=== PATIENT | female | born 1990 | race Caucasian/White ===

== ENCOUNTER 2017-02-14 22:15 | Observation (INO) | payer OTHER ==
--- NOTE | ~2017-02-14 | DS ---
Unit #: [id number] #: [id number] Patient: NELLI [id number] [address] [address] [id number] I MR#: [id number] NAME: NELLI DECEMBER ROOM: 339 Age: 27 Sex: F Admission Date: 02/14/2017 : 1990 Discharge Date: 02/15/2017 Attending Physician: Jessica Fields M.D. DISCHARGE SUMMARY SHORT-STAY SUMMARY CHIEF COMPLAINT Benadryl overdose. HISTORY OF PRESENT ILLNESS Ms. Card is a 27-year-old female with a history of recurrent severe depression with associated prior suicide attempt, who presented to the emergency room for the above. The patient states she has been experiencing increasing stress at home recently. She is upset that her children's father is unable to see them due to the fact that he is using significant amount of drugs. She is having trouble with bills. She is trying to find a new place to stay. She states simply the stress became too much and she decided to take some Benadryl. The patient states she took 27 Benadryl and per review of emergency room records the boyfriend confirms this amount is pretty appropriate. She was subsequently brought to the emergency room by her boyfriend. Physical examination and vital signs at that time were relatively stable, though the patient was somewhat agitated. She has been placed in the hospital for further evaluation. The patient does not directly answer whether she was trying to hurt herself or not. She has been placed on a 72-hour hold. PAST MEDICAL HISTORY 1. Chronic recurrent major depressive disorder. [facility] from [facility], when the patient was age 14, revealed that she had at least 2 suicide attempts before that time and was abusing marijuana and alcohol as a teenager. 2. Questionable history of lupus. PAST SURGICAL HISTORY Tubal ligation. SOCIAL HISTORY The patient does reside with her children. She is vague on how much she smokes and states "It depends on how stressed I am." She does have a history of illicit drug use in the past. FAMILY HISTORY Significant for ovarian cancer in the patient's mother per review of records. The patient's father has skin cancer. ALLERGIES No known drug allergies. HOME MEDICATIONS Unit #: [id number] #: [id number] Patient: Some medication for anxiety. REVIEW OF SYSTEMS The patient denies any nausea, vomiting, constipation, diarrhea at this time. She denies any shortness of breath or chest pain. She denies any tingling or numbness. Otherwise 10-point review of systems is negative. PHYSICAL EXAMINATION GENERAL: The patient is awake. She is alert. She is oriented times three. She makes fair eye contact. VITALS: Temperature 98.3, blood pressure 125/89, pulse rate 71, respiratory rate 16, oxygen saturation 98% on room air. HEENT: Pupils equally round and reactive to light bilaterally. Anicteric sclerae. No conjunctival pallor. Oropharynx with moist mucous membranes. No erythema or exudate. NECK: Supple. No lymphadenopathy. No thyromegaly. No jugular venous distension. LUNGS: Clear to auscultation bilaterally without wheezes, rhonchi or crackles. HEART: Regular rate and rhythm without murmur, rub or gallop. ABDOMEN: Soft, nontender and nondistended. Positive bowel sounds. No appreciable hepatosplenomegaly. EXTREMITIES: No cyanosis, clubbing or edema. Pedal pulses 2/4. SKIN: Warm and moist without rash. NEUROLOGIC: Cranial nerves II through XII are intact. Sensation, strength and deep tendon reflexes are all grossly normal. Gait was not assessed. MUSCULOSKELETAL: No significant joint erythema or hypertrophy noted. PSYCHIATRIC: Eye contact again fair. Affect is somewhat flat. DIAGNOSTIC STUDIES LABORATORY: Urinalysis reveals 3+ blood, 100-200 RBCs, but the patient is currently on her period. Urine drug screen is positive for amphetamines, marijuana, opiates and TCAs. CBC reveals a white blood cell count of 10.7, hemoglobin 15.1, platelet count of 286,000, INR normal at 1.1. CMP reveals a sodium of 139, potassium 3.1, chloride 104, bicarb 25, BUN 10, creatinine 0.9, glucose 94. LFTs and albumin are all normal. Tylenol, salicylate and alcohol levels are all negative. CARDIOVASCULAR: EKG done in the emergency department reveals normal sinus rhythm without any acute ST or T wave abnormalities. ASSESSMENT 1. Intentional Benadryl overdose. 2. Polysubstance abuse, including amphetamines, marijuana, opiates and TCAs. 3. Hypokalemia. 4. Tobaccoism. 5. Questionable history of lupus. PLAN The patient is medically stable this morning from her Benadryl overdose. I am awaiting evaluation by psychiatry and I anticipate the patient will be [facility]. I will check an HIV and viral hepatitis panel on blood in the lab for completeness. Unit #: [id number] #: [id number] Patient: Dictated by... Jessica Fields M.D. GERRY/ruth TD: 02/15/2017 07:21 JOB #: [id number] DISCHARGE SUMMARY Page 1 of 1 X Jessica Fields MD X DISCHARGE SUMMARY
--- NOTE | ~2017-02-14 | EKG ---
PATIENT: NELLI DECEMBER UNIT #: [id number] Ventricular Rate: 103 BPM Atrial Rate: 103 BPM P-R Interval: 124 ms QRS Duration: 76 ms Q-T Interval: 342 ms QTC Calculation(Bezet): 448 ms P Finley: 59 degrees Calculated R Finley: 74 degrees Calculated T Finley: 54 degrees Diagnosis Line: Sinus tachycardia Diagnosis Line: Possible Left atrial enlargement Diagnosis Line: Borderline ECG Diagnosis Line: No previous ECGs available Diagnosis Line: Confirmed by STANISLAV WASHBURN MD ([id number]) on Diagnosis Line: 02/16/2017 3:40:41 PM INTERPRETING MD: WU BENITO
--- NOTE | ~2017-02-14 | CO ---
Unit #: [id number] #: [id number] Patient: ANDREA AIKEN [id number] [facility] [address] [facility]. [place], [place] [address] [id number] I MR#: [id number] NAME: ANDREA AIKEN ROOM: 339 Age: 27 Sex: F Admission Date: 02/15/2017 : 1990 Attending Physician: Jessica Fields M.D. Consultation Date: 02/15/2017 CONSULTATION REPORT REASON FOR CONSULTATION Overdose and depression. HISTORY OF PRESENT ILLNESS Ms. Abel is a 27-year-old white female, seen in room 339, bed 1 on 02/15/2017 at [facility]. The patient dressed in street clothes, somewhat agitated. Security was called. The patient was very mad, angry, paranoid, and agitated. The patient wanted to leave. The patient is on 72-hour hold, came with overdose. The patient's behavior was belligerent, agitated, angry, and upset. The patient was brought to the emergency room by boyfriend on 02/14/2017, took overdose of Benadryl. The patient was tested about custody north with her children. The patient has no employment or medical issues. Increasingly sad and depressed over the last few weeks. Anxiety according to the family member. The patient claimed overdose and suicide attempt on admission. The patient was placed on 72-hour hold. The patient also reported history of substance abuse, lately increased tobacco use, age of onset 11; alcohol, age of onset 14; marijuana, age of onset 13; crack cocaine, age of onset 14; opioid, age of onset 23; amphetamine, age of onset 27. The patient reported history of blackout, but no history of any IV drug use. The patient's vital signs; temperature 98.1, pulse 72, respirations 16, blood pressure 105/67, and oxygen saturation 100%. PAST PSYCHIATRIC HISTORY Remarkable for history of substance abuse, depression, and anxiety. MEDICAL HISTORY Remarkable for lupus. MEDICATION HISTORY None. FAMILY HISTORY AND SOCIAL HISTORY The patient has a good support system. No history of abuse. History of substance abuse as mentioned above. REVIEW OF SYSTEMS A complete review of systems is unremarkable. MENTAL STATUS EXAMINATION Vital signs; please see above. General appearance; the patient dressed in street clothes, agitated, mad, yelling, and screaming. Mood was labile. Attention span and concentration, poor. Speech; rapid and pressured. Oriented in time, place, and person. Mood and affect, labile. Thought Unit #: [id number] #: [id number] Patient: NELLI process, circumstantial. Thought content; denied any thoughts of harming self or others, but guarded, paranoid, and recent suicide attempt by taking overdose. Denied any hallucination, but guarded and paranoid. Recent and remote memory, fair to poor. Language, fair. Fund of knowledge, fair. Insight and judgment, fair to slightly impaired. DIAGNOSES Psychiatric: Major depressive disorder, recurrent, severe, F33.2; polysubstance abuse, urine drug screen positive for amphetamine, marijuana, opioid; opioid use disorder, severe, F11.20; cannabis abuse, ywfhoamh-ui-couzju, F12.20; amphetamine use disorder, dfybtsdh-mi-dfttjk, F15.20. Secondary diagnosis: Deferred. Medical diagnosis: Lupus. Stressors: Psychosocial stressor. DISCHARGE INSTRUCTIONS Supportive psychotherapy and psychoeducation provided to the patient. The patient was very agitated, angry, and upset. Advised the patient to be transferred to [facility] for inpatient psychiatric treatment. If needed, please feel free to call, telephone #[phone]. Dictated by... Anibal Romero/niels TD: 02/16/2017 14:13 JOB #: [id number] CONSULTATION REPORT Page 1 of 1 X Nayan Justice MD X CONSULTATION REPORT
--- NOTE | ~2017-02-14 | CT71 ---
[facility] A Service [facility] RADIOLOGY TEXT RESULTS PATIENT: NELLI LOCATION: [facility] 339-01 : [birth year] UNIT #: [id number] AGE: [address]: Jessica Fields MD SEX: F ORDER DR: [id number] [place] [id number] I MR#: [id number] Acc #: [id number] NAME: NELLI DECEMBER : 1990 SEX: F STUDY DATE/TIME: 02/14/2017 23:06 UNIT: SEDOF ROOM: [facility] STUDY DESCRIPTION: CT Head Wo Contrast Attending Physician: Estefania Echeverria M.D. Ordering Physician: Rylan Dave M.D. MEDICAL IMAGING REPORT This report is preliminary unless electronic signature is present. EXAM CT head, noncontrast, 02/14/2017. HISTORY 27-year-old female in the ED with mental status changes after drug overdose. TECHNIQUE CT examination of the head without IV contrast. This CT exam was performed with one or more of the following radiation dose reduction techniques: automatic exposure control, adjustment of mA and/or kV according to patient size, and iterative reconstruction. FINDINGS The examination is negative. No evidence of intracranial hemorrhage, mass, mass effect, cerebral edema, hydrocephalus or additional abnormality. Note is made of mild to moderate mucosal thickening throughout the visualized paranasal sinuses. IMPRESSION 1. Negative noncontrast head CT examination. 2. Mucosal thickening throughout the paranasal sinuses. Dictated by... Joel Gibson M.D. THIS IS AN ELECTRONICALLY VERIFIED REPORT Joel Gibson M.D. at 02/15/2017 9:55 PM RGW/tmw [facility] A Service [facility] RADIOLOGY TEXT RESULTS PATIENT: NELLI LOCATION: [facility] 339-01 : [birth year] UNIT #: [id number] AGE: [address]: Jessica Fields MD SEX: F ORDER DR: TD: 02/15/2017 09:55 JOB #: [id number] MEDICAL IMAGING REPORT Page 1 of 1
[~2017-02-14 22:15] MED LIST: PRENATAL1 TA1 PO
[2017-02-14 22:47] LABS: URINE SOURCE CLEAN CATCH
[2017-02-14 22:51] LABS: URINE APPEARANCE CLEAR; URINE BILIRUBIN NEG (NEG); URINE BLOOD 3+ (NEG); URINE COLOR YELLOW; URINE GLUCOSE NEG (NORM); URINE KETONE NEG (NEG); URINE LEUKOCYTE ESTERASE NEG (NEG); URINE NITRATE NEG (NEG); URINE PROTEIN NEG (NEG); URINE SPECIFIC GRAVITY <=1.005 (1.003-1.035); URINE UROBILINOGEN 0.2 MG/DL (NORM)
[2017-02-14 22:55] LABS: BASOPHIL% 0.4 % (0-2.5); EOSINOPHIL# 0.1 X10e3 (0-0.7); EOSINOPHIL% 1.1 % (0.0-7.0); HEMATOCRIT 44.5 % (35.0-45.0); HEMOGLOBIN 15.1 gm/dL (12.0-16.0); LYMPHOCYTE# 2.4 X10e3 (1.0-3.5); MEAN CELL VOLUME 86.2 FL (83-96); MEAN CORPUSCULAR HEMOGLOBIN 29.2 PG (28-34); MEAN CORPUSCULAR HGB CONC 33.9 g/dL (30-36); MONOCYTE# 0.8 X10e3 (0-1.0); MONOCYTE% 7.7 % (3.0-12.0); NEUTROPHIL# 7.4 X10e3 (1.5-7.1); NEUTROPHIL% 68.8 % (40-75); PLATELET COUNT 286 X10e3 (140-420); RED BLOOD COUNT 5.16 X10e (3.90-5.30); RED CELL DISTRIBUTION WIDTH 13.5 % (11.0-15.5); WHITE BLOOD COUNT 10.7 X10e3 (4.0-10.5)
[2017-02-14 22:58] LABS: MICRO INDICATED? YES
[2017-02-14 22:59] LABS: CULTURE INDICATED? NO; URINE BACTERIA NEG (NEG); URINE RBC 100-200 /[HPF] (0-2); URINE WBC 0-2 /[HPF] (0-5)
[2017-02-14 23:01] LABS: AMPHETAMINE POS (NEG); BARBITURATES NEG (NEG); BENZODIAZEPINES NEG (NEG); COCAINE NEG (NEG); MARIJUANA POS (NEG); OPIATES POS (NEG); TRICYCLIC ANTIDEPRESSANTS POS (NEG); U METHADONE NEG (NEG)
[2017-02-14 23:02] LABS: DIFF IND NO
[2017-02-14 23:06] LABS: INR 1.1; PROTHROMBIN TIME (PATIENT) 12.2 SECONDS (9.5-12.4)
[2017-02-14 23:13] LABS: PARTIAL THROMBOPLASTIN TIME 30.3 SECONDS (25.6-38.1)
[2017-02-14 23:14] LABS: ALBUMIN SERUM 4.9 g/dL (3.5-5.0); ALKALINE PHOSPHATASE 69 U/L (32-92); ALT (SGPT) 23 U/L (10-40); AST (SGOT) 27 U/L (10-42); BILIRUBIN, DIRECT 0.1 mg/dL (0.0-0.2); BILIRUBIN,INDIRECT 0.3 mg/dL (0.0-0.9); BILIRUBIN,TOTAL 0.4 mg/dL (0.2-2.0); BLOOD UREA NITROGEN 10 mg/dL (9-23); BUN/CREATININE RATIO 11.11; CALCIUM SERUM 9.5 mg/dL (8.4-10.2); CARBON DIOXIDE 25 mmol/L (22-31); CHLORIDE 104 mmol/L (100-111); CREATININE SERUM 0.9 mg/dL (0.6-1.4); GLOM FILT RATE Estimated 87.1 mL/min (>60); GLUCOSE FASTING 94 mg/dL (70-110); POTASSIUM 3.1 mmol/L (3.5-5.1); PROTEIN TOTAL SERUM 8.1 g/dL (6.0-8.3); SALICYLATE <4.0 mg/dL; SODIUM 139 mmol/L (135-145)
[2017-02-14 23:17] LABS: ACETAMINOPHEN <10 ug/mL; ALCOHOL BLOOD <5 mg/dL (0)
[2017-02-15 06:22] LABS: HEMATOCRIT 41.6 % (35.0-45.0); HEMOGLOBIN 13.9 gm/dL (12.0-16.0); MEAN CELL VOLUME 86.8 FL (83-96); MEAN CORPUSCULAR HGB CONC 33.4 g/dL (30-36); RED BLOOD COUNT 4.79 X10e (3.90-5.30); RED CELL DISTRIBUTION WIDTH 13.4 % (11.0-15.5); WHITE BLOOD COUNT 10.9 X10e3 (4.0-10.5)
[2017-02-15 07:24] LABS: BUN/CREATININE RATIO 11.25; CALCIUM SERUM 9.2 mg/dL (8.4-10.2); CREATININE SERUM 0.8 mg/dL (0.6-1.4); GLOM FILT RATE Estimated 100.4 mL/min (>60); POTASSIUM 3.9 mmol/L (3.5-5.1)
[2017-02-18 00:59] LABS: HA AB IGM (HEPPAN) Nonreactive (()); HB CORE AB IGM (HEPPAN) Nonreactive (Nonreactive); HB S AG (HEPPAN) Nonreactive (Nonreactive); HEP C AB (HEPPAN) Nonreactive (Nonreactive); HEP C AB SIGNAL TO CUTOFF 0.03 ratio (<1.00)
== END 2017-02-15 17:03 ==
LOC: SED 22:15 → SEDOF 23:39 → C3A PCU 23:39 → SED 23:39 → CEDOF 02-15 02:30 → C3A PCU 02-15 02:30
PROVIDERS: Emergency Medicine; Internal Medicine
DX: T45.0X2A Poisoning by antiallergic and antiemetic drugs, intentional self-harm, initial encounter (principal); F15.10 Other stimulant abuse, uncomplicated; F11.10 Opioid abuse, uncomplicated; F12.10 Cannabis abuse, uncomplicated; F19.10 Other psychoactive substance abuse, uncomplicated; F33.2 Major depressive disorder, recurrent severe without psychotic features; E87.6 Hypokalemia; F17.200 Nicotine dependence, unspecified, uncomplicated; Z80.41 Family history of malignant neoplasm of ovary; Z80.8 Family history of malignant neoplasm of other organs or systems
CPT/HCPCS: 36415; 70450; 80048; 80074; 80076; 80307; 81003; 85025; 85027; 85610; 85730; 87806; 93005; 96360; 99285; G0378; G0480

== ENCOUNTER 2017-02-15 11:00 | Inpatient (IN) | payer OTHER ==
--- NOTE | ~2017-02-15 | PN ---
Unit #: [id number] #: [id number] Patient: NELLIDECEMBER [id number] [facility] [address] [place] [address] [id number] I MR#: [id number] NAME: ANDREA AIKEN ROOM: P171 Age: 27 Sex: F Admission Date: 02/15/2017 : 1990 Attending Physician: Geovanny Almonte M.D. Admitting Physician: Geovanny Almonte M.D. Primary Care Physician: Anibal Daniel PROGRESS NOTES DATE OF SERVICE: 02/16/2017 SUBJECTIVE Ms. Aiken is a 27-year-old white female, who was seen today and chart was reviewed, and case was discussed with the staff. She has been anxious, withdrawn, and rather seclusive to herself. Meanwhile, she has been cooperative with treatment recommendations and has been taking the medications and tolerating them fairly well with no reported side effects. MENTAL STATUS EXAMINATION Young white female who was casually dressed with fair personal hygiene, appears to be in no acute distress or discomfort. She was awake and alert with impaired attention and concentration. Her mood was anxious with a congruent affect. Her speech was slow and restricted in content. She denies any current suicidal or homicidal ideations and also denies any auditory or visual hallucinations. Her insight and judgment remain slightly impaired. TREATMENT PLAN 1. We will continue on her current medications and treatment protocol. We will monitor her response to medications and make further adjustments as needed. 2. We will continue to follow up. Dictated by... Anibal Graff/niels TD: 02/17/2017 06:53 JOB #: [id number] Unit #: [id number] #: [id number] Patient: ANDREA AIKEN PROGRESS NOTES Page 1 of 1 X Geovanny Almonte MD PROGRESS NOTE
--- NOTE | ~2017-02-15 | PN ---
Unit #: [id number] #: [id number] Patient: NELLIDECEMBER [id number] [facility] [address] [place] [address] [id number] I MR#: [id number] NAME: ANDREA AIKEN ROOM: P171 Age: 27 Sex: F Admission Date: 02/15/2017 : 1990 Attending Physician: Geovanny Almonte M.D. Admitting Physician: Geovanny Almonte M.D. Primary Care Physician: Anibal Daniel PROGRESS NOTES DATE 02/17/2017 DISCUSSION Ms. Aiken is a 27-year-old white female who was seen today and chart was reviewed and case was discussed with the staff. She was seen to be anxious, withdrawn and rather seclusive to herself and was seen to be in acute distress and discomfort and has not been functioning as she has been able to carry on meaningful conversation. Meanwhile, she has been taking medication and tolerating them fairly well with no reported side effects. MENTAL STATUS EXAMINATION Young white female who was casually dressed with fair personal hygiene, appears to be in no acute distress or discomfort. She was awake and alert on interaction with intact orientation. Her mood was anxious with congruent affect. She denies any suicidal or homicidal ideations. Her insight and judgement remains slightly impaired. TREATMENT PLAN 1. We will continue her on her current medications and treatment protocol. We will monitor her response and make further adjustments as needed. 2. We will continue to follow up. Dictated by... Anibal Graff/jerald TD: 02/18/2017 01:39 JOB #: [id number] Unit #: [id number] #: [id number] Patient: ANDREA AIKEN PROGRESS NOTES Page 1 of 1 X Geovanny Almonte MD PROGRESS NOTE
--- NOTE | ~2017-02-15 | PA ---
Unit #: [id number] #: [id number] Patient: NELLI,DECEMBER [id number] [facility] [address] [place] [address] [id number] I MR#: [id number] NAME: NELLI DECEMBER ROOM: P171 Age: 27 Sex: F Admission Date: 02/15/2017 : 1990 Date of Assessment: 02/15/2017 Attending Physician: Geovanny Almonte M.D. Admitting Physician: Geovanny Almonte M.D. Primary Care Physician: Justyn Lenz M.D. PSYCHIATRIC ASSESSMENT DATE OF SERVICE 02/15/2017. IDENTIFYING DATA Ms. Card is a 27-year-old single white female, who is a resident of [place], [place], and was transferred to us from [facility]. CHIEF COMPLAINT "I overdosed on Benadryl." HISTORY OF PRESENT ILLNESS Ms. Card is a 27-year-old white female, who was brought to the hospital after making a decision to take Benadryl to fall asleep last night and reports that she does not recall much from 6 p.m. last night and the morning and remembers being taken to the ER and the [facility] and being transferred to [facility] and denies any intent to and claims she just wanted to sleep and reports that she has been using drugs more recently over the last few days and also admits using Lortab, marijuana, and methamphetamine yesterday prior to taking the Benadryl and reports that she was at her boyfriend's sister's home when she took the Benadryl and is not sure why they felt she needed to be taken to the hospital. The patient reports that she was instantly put on nonnarcotic anxiolytic medication and has been trying to get setup in the outpatient therapy and reports feeling depressed and tearful for the last few weeks. She reports using meth to help her keep the energy to take care of her 3 children and other daily responsibilities, and [employer] spoke with the patient's nurse, who advised the patient made report to the hospital staff upon admission was trying to kill herself last night. When asked about that this, the patient reports she cannot remember much from last night. She reports she quit her job 2 weeks ago and advised that she was exposed to drugs too often and did not want to be tempted and that she is supported by her boyfriend and welfare and reports that she has been living with her father since December after a mole was found in her apartment and reports that she and her boyfriend are saving up money to move in together and the patient reports the living situation with the father is pretty stable at this time; however, she was seen to be an unreliable historian in the emergency room and as such, recommendation for inpatient level of care for safety and stabilization was made and the patient was transferred to us. SUBSTANCE ABUSE HISTORY The patient has an extensive history of substance abuse and dependence Unit #: [id number] #: [id number] Patient: including experimentation and abuse of cannabis, alcohol, cocaine, opioids, and methamphetamine, and more recently, she reports that she has been using cannabis, opioids, and methamphetamine on a daily basis. PAST PSYCHIATRIC HISTORY The patient has had outpatient chemical dependency treatment in the past. Review of the medical records indicate currently she is on a combination of Lexapro and BuSpar, though it is not clear if she has been compliant with the medications. PAST MEDICAL HISTORY Significant for lupus and psoriasis. ALLERGIES No known medication allergies. PERSONAL AND SOCIAL HISTORY A 27-year-old white female, who reports that she has 3 children, ages 4, 3, and 1, and she lives at home with her father and her 3 children. MENTAL STATUS EXAMINATION Young white female, who was casually dressed with fair personal hygiene, appears to be in no acute distress or discomfort. She was awake and alert on interaction with intact orientation to time, place, and person. Her mood was anxious and depressed with a congruent affect. Her speech was slow and restricted in content. Her thought processes were disorganized with some looseness of associations and flight of ideas and suicidal ideations. Her insight and judgment remain significantly impaired. DIAGNOSTIC IMPRESSION Psychiatric: Major depressive disorder, recurrent, moderate, without psychotic features; opioid dependence, moderate; and methamphetamine dependence, moderate. Medical: None. Stressors: Moderate psychosocial stressors. TREATMENT PLAN 1. The patient has presented with history of mood disorder and substance abuse and has been decompensating and will need inpatient hospitalization for safety and stabilization. We will start her back on her home medications. We will monitor her response and make further adjustments as needed. 2. Supportive therapy was provided to the patient. 3. Safe, structured, and nourishing environment will be provided. ESTIMATED LENGTH OF STAY 5 to 7 days. ABILITY TO HELP SELF Limited. WILLINGNESS TO HELP SELF The patient appears to be willing to help self. STRENGTHS 1. Communicative. 2. Cooperative. PROBLEMS Unit #: [id number] #: [id number] Patient: DECEMBER 13. Chronic dysphoric symptoms. 2. Chronic chemical dependency. 3. Poor social support system. DISCHARGE CRITERIA This will be contingent upon the patient's ability to show resolution of her depression and anxiety and her ability to stay safe to herself, particularly after discharge from the hospital. Dictated by... Geovanny Almonte M.D. MICHAELLE/niels TD: 02/16/2017 12:36 JOB #: [id number] PSYCHIATRIC ASSESSMENT Page 1 of 1 X Geovanny Almonte MD X PSYCHIATRIC ASSESSMENT
--- NOTE | ~2017-02-15 | PN ---
Unit #: [id number] #: [id number] Patient: NELLIDECEMBER [id number] [facility] [address] [place] [address] [id number] MR#: [id number] NAME: NELLI ANDREA ROOM: P171 Age: 27 Sex: F Admission Date: 02/15/2017 : 1990 Attending Physician: Geovanny Almonte M.D. Admitting Physician: Geovanny Almonte M.D. Primary Care Physician: Justyn Lenz M.D. [facility] PROGRESS NOTES DATE 02/18/2017 DISCUSSION Ms. Aiken is a 27-year-old white female with substance abuse and mood disorder who was seen today and chart was reviewed and case was discussed with the staff. She remains anxious, withdrawn, depressed and rather seclusive to herself. Meanwhile, she has been taking medications and tolerating them fairly well but does not appear to be showing much therapeutic response. She remains unkempt, disheveled and unable to function due to activities of daily living, socialize, interact though showing a significant improvement in her mood disorder. MENTAL STATUS EXAMINATION young white female who was casually dressed with fair personal hygiene, appears to be in distress and discomfort. She was awake and alert with impaired attention and concentration. Her mood was anxious with congruent affect. She reports having suicidal ideation but denies any homicidal ideation. Her insight and judgement remains slightly impaired. TREATMENT PLAN 1. We will continue her on her current medications and treatment protocol. We will continue to monitor her response and make further adjustments as needed. 2. We will continue to follow up. Dictated by... Anibal Graff/jerald TD: 02/18/2017 23:27 JOB #: [id number] Unit #: [id number] #: [id number] Patient: ANDREA AIKEN PROGRESS NOTES Page 1 of 1 X Geovanny Almonte MD PROGRESS NOTE
[2017-02-16 09:31] LABS: BASOPHIL% 0.3 % (0-2.5); EOSINOPHIL# 0.2 X10e3 (0-0.7); EOSINOPHIL% 1.9 % (0.0-7.0); HEMATOCRIT 44.7 % (35.0-45.0); HEMOGLOBIN 14.3 gm/dL (12.0-16.0); LYMPHOCYTE# 3.1 X10e3 (1.0-3.5); MEAN CELL VOLUME 88.1 FL (83-96); MEAN CORPUSCULAR HEMOGLOBIN 28.1 PG (28-34); MEAN CORPUSCULAR HGB CONC 31.9 g/dL (30-36); MEAN PLATELET VOLUME 8.7 FL (6.5-11.5); MONOCYTE# 0.9 X10e3 (0-1.0); MONOCYTE% 7.5 % (3.0-12.0); NEUTROPHIL# 7.3 X10e3 (1.5-7.1); NEUTROPHIL% 63.3 % (40-75); PLATELET COUNT 274 X10e3 (140-420); RED BLOOD COUNT 5.08 X10e (3.90-5.30); RED CELL DISTRIBUTION WIDTH 13.9 % (11.0-15.5); WHITE BLOOD COUNT 11.6 X10e3 (4.0-10.5)
[2017-02-16 09:48] LABS: DIFF IND NO
[2017-02-16 10:27] LABS: ALBUMIN SERUM 3.9 g/dL (3.5-5.0); CALCIUM SERUM 9.3 mg/dL (8.4-10.2); GLOM FILT RATE Estimated 76.6 mL/min (>60); POTASSIUM 4.3 mmol/L (3.5-5.1); PROTEIN TOTAL SERUM 6.5 g/dL (6.0-8.3)
[2017-02-18 09:47] LABS: URINE APPEARANCE CLOUDY; URINE BILIRUBIN NEG (NEG); URINE BLOOD 3+ (NEG); URINE COLOR YELLOW; URINE GLUCOSE NEG (NEG); URINE KETONE TRACE (NEG); URINE LEUKOCYTE ESTERASE TRACE (NEG); URINE NITRATE NEG (NEG); URINE PH 6.5 (5-8); URINE PROTEIN 1+ (NEG); URINE SPECIFIC GRAVITY 1.023 (1.003-1.035)
[2017-02-18 09:51] LABS: URINE BACTERIA AUWI 2+ (NEGATIVE); URINE SQUAMOUS EPITHELIAL CELL MOD /[HPF]
[2017-02-18 10:32] LABS: URINE CRYSTALS CALCIUM OXALATE /[HPF]; URINE MUCUS PRESENT; URINE YEAST PRESENT
[2017-02-18 10:59] LABS: AMPHETAMINE NEG (NEG); BARBITURATES NEG (NEG); BENZODIAZEPINES NEG (NEG); COCAINE NEG (NEG); MARIJUANA NEG (NEG); OPIATES NEG (NEG); TRICYCLIC ANTIDEPRESSANTS NEG (NEG); U METHADONE NEG (NEG)
== END 2017-02-18 15:53 | DRG 885 ==
LOC: P1E 17:18
PROVIDERS: Psychiatry & Neurology Psychiatry
DX: F33.1 Major depressive disorder, recurrent, moderate (principal); F11.20 Opioid dependence, uncomplicated; R45.851 Suicidal ideations; F15.20 Other stimulant dependence, uncomplicated
CPT/HCPCS: 80053; 80307; 81003; 84703; 85025